=== PATIENT | male | born 1980 | race Caucasian/White ===

== ENCOUNTER 2017-06-17 08:46 | Emergency (ER) | payer BC ==
[2017-06-17 09:27] VITALS: BP 112/69
[2017-06-17] MEDS ORDERED: predniSONE TAB* 20 MG PO ONE (09:57)
--- NOTE | 2017-06-17 13:20 | UC ---
Throat Pain/Nasal Eliazar HPI - HPI Summary HPI Summary: 36 yo male with sore throat /cough and congestion x days with strep he has asthma and is concerned he is starting to feel bronchospastic he developed itchy hands when he took amox - History of Current Complaint Chief Complaint: UCRespiratory Stated Complaint: COUGH,CHEST CONGESTION Time Seen by Provider: 06/17/17 09:51 Hx Obtained From: Patient Onset/Duration: Gradual Onset Severity: Moderate Pain Intensity: 2 Pain Scale Used: 0-10 Numeric Cough: Productive Associated Signs & Symptoms: Positive: Sinus Discomfort, Nasal Discharge. Negative: Fever, Vomiting - Epiglottits Risk Factors Epiglottis Risk Factors: Negative - Allergies/Home Medications Allergies/Adverse Reactions: Allergies Allergy/AdvReac Type Severity Reaction Status Date / Time Latex Allergy Rash Verified 06/17/17 09:27 Penicillins Allergy Swelling Verified 06/17/17 09:27 Soy Allergy Allergy HIVES, Verified 06/17/17 09:27 ITCHY THROAT Home Medications: Home Medications Albuterol HFA INHALER* [Ventolin HFA Inhaler*] 3 puff INH Q12H PRN 06/17/17 [ History Confirmed 06/17/17] PMH/Surg Hx/FS Hx/Imm Hx Previously Healthy: Yes Respiratory History: Asthma, Bronchitis - Surgical History Surgical History: Yes Surgery Procedure, Year, and Place: left achilles tendon repair 2014 - Family History Known Family History: Positive: Respiratory Disease - asthma - Social History Alcohol Use: Occasionally Alcohol Amount: 1-2 PER MONTH Substance Use Type: None Smoking Status (MU): Never Smoked Tobacco Have You Smoked in the Last Year: No Review of Systems Constitutional: Negative Skin: Negative Eyes: Negative ENT: Sore Throat, Nasal Discharge, Sinus Congestion, Sinus Pain/Tenderness Respiratory: Cough Cardiovascular: Negative Gastrointestinal: Negative Genitourinary: Negative Motor: Negative Neurovascular: Negative Musculoskeletal: Negative Neurological: Negative Psychological: Negative All Other Systems Reviewed And Are Negative: Yes Physical Exam Triage Information Reviewed: Yes Appearance: Well-Appearing, No Pain Distress, Well-Nourished Vital Signs: Initial Vital Signs Temp 97.6 F 06/17/17 09:20 Pulse 85 06/17/17 09:20 Resp 18 06/17/17 09:20 BP 112/69 06/17/17 09:20 Pulse Ox 100 06/17/17 09:20 Vital Signs Reviewed: Yes Eyes: Positive: Conjunctiva Clear ENT: Positive: Hearing grossly normal, Pharyngeal erythema, Nasal congestion, Nasal drainage, TMs normal, Other: - bilat sinus tenderness. Negative: Tonsillar swelling, Tonsillar exudate, Trismus, Muffled/hoarse voice Neck: Positive: Supple, Nontender, No Lymphadenopathy Respiratory: Positive: Lungs clear, Normal breath sounds, No respiratory distress, No accessory muscle use Cardiovascular: Positive: RRR, No Murmur Abdomen Description: Positive: Nontender, No Organomegaly Musculoskeletal: Positive: ROM Intact, No Edema Neurological: Positive: Alert Psychological Exam: Normal Skin Exam: Normal Throat Pain/Nasal Course/Dx - Differential Dx/Diagnosis Provider Diagnoses: pharyngitis. sinusitis Discharge - Discharge Plan Condition: Stable Disposition: HOME Prescriptions: Cefuroxime Axetil [Ceftin 250 MG] 250 mg PO BID #20 tab Prednisone [Deltasone] 40 mg PO DAILY #10 tab Patient Education Materials: Pharyngitis (ED), Sinusitis (ED) Referrals: [facility] [Primary Care Provider] - 4 Days (if not better) Additional Instructions: recheck for new or worsening symptoms
== END 2017-06-17 10:12 | disposition home or self-care (01) ==
LOC: UCCORT 08:46
DX: J02.9 Acute pharyngitis, unspecified (principal); J32.9 Chronic sinusitis, unspecified; J45.909 Unspecified asthma, uncomplicated; Z88.0 Allergy status to penicillin; Z91.040 Latex allergy status
CPT/HCPCS: 99212; G0463

== ENCOUNTER 2017-10-23 10:32 | Emergency (ER) | payer BC ==
[2017-10-23 11:04] VITALS: BP 144/86
--- NOTE | 2017-10-23 12:28 | UC ---
[facility] HPI - HPI Summary HPI Summary: left lower "eye tooth" pain---got a new cap and has had pain every since-had be worse with swelling for the past 2 days, also needs albuterol refilled - History of Current Complaint Chief Complaint: UCDentalProblem Stated Complaint: ORAL COMPLAINT Time Seen by Provider: 10/23/17 12:09 Hx Obtained From: Patient Onset/Duration: Gradual Onset, Worse Since - past 2 days Severity: Severe Pain Intensity: 10 Pain Scale Used: 0-10 Numeric Aggravating Factor(s): Nothing Alleviating Factor(s): Nothing Related History: Previous Dental Care on Same Tooth, Swelling - Allergies/Home Medications Allergies/Adverse Reactions: Allergies Allergy/AdvReac Type Severity Reaction Status Date / Time Latex Allergy Rash Verified 10/23/17 11:04 Penicillins Allergy Swelling Verified 10/23/17 11:04 Soy Allergy Allergy HIVES, Verified 10/23/17 11:04 ITCHY THROAT PMH/Surg Hx/FS Hx/Imm Hx Previously Healthy: No Respiratory History: Asthma Psychological History: Anxiety - Surgical History Surgical History: Yes Surgery Procedure, Year, and Place: left achilles tendon repair 2014 - Family History Known Family History: Positive: Respiratory Disease - asthma - Social History Occupation: Employed Full-time Lives: With Family Alcohol Use: None Alcohol Amount: 1-2 PER MONTH Substance Use Type: None Smoking Status (MU): Never Smoked Tobacco Have You Smoked in the Last Year: No Review of Systems Constitutional: Negative Skin: Negative Eyes: Negative ENT: Dental Pain Respiratory: Negative Cardiovascular: Negative Gastrointestinal: Negative Genitourinary: Negative Motor: Negative Neurovascular: Negative Musculoskeletal: Negative Neurological: Negative Psychological: Negative Is Patient Immunocompromised?: No All Other Systems Reviewed And Are Negative: Yes Physical Exam Triage Information Reviewed: Yes Appearance: Well-Appearing, No Pain Distress, Well-Nourished Vital Signs: Initial Vital Signs Temp 98 F 10/23/17 11:00 Pulse 76 10/23/17 11:00 Resp 16 10/23/17 11:00 BP 144/86 10/23/17 11:00 Pulse Ox 100 10/23/17 11:00 Vital Signs Reviewed: Yes Eye Exam: Normal Eyes: Positive: Conjunctiva Clear ENT Exam: Normal ENT: Positive: Normal ENT inspection, Hearing grossly normal, Pharynx normal, Dental tenderness, Uvula midline. Negative: Nasal congestion, Nasal drainage, Tonsillar swelling, Tonsillar exudate, Trismus, Muffled voice, Hoarse voice, Sinus tenderness Dental Exam: Normal Dental: Positive: Percussion Tenderness @ - Left lower "eye tooth" Neck exam: Normal Neck: Positive: Supple, Nontender Respiratory Exam: Normal Respiratory: Positive: Chest non-tender, No respiratory distress, No accessory muscle use Cardiovascular Exam: Normal Cardiovascular: Positive: RRR, Pulses Normal, Brisk Capillary Refill Musculoskeletal Exam: Normal Musculoskeletal: Positive: Strength Intact, ROM Intact Neurological Exam: Normal Neurological: Positive: Alert, Muscle Tone Normal Psychological Exam: Normal Skin Exam: Normal Dental Complaint Course/Dx - Course Course Of Treatment: Antibiodic and pain med-refill MDI, follow BP with pcp---(I -stop checked and no schedueled rx reported) - Differential Dx/Diagnosis Provider Diagnoses: Dental abscess, mild intermittent asthma, elevated blood pressure with dx of hypertension Discharge - Discharge Plan Condition: Stable Disposition: HOME Prescriptions: Albuterol HFA INHALER* [Ventolin HFA Inhaler*] 2 puff INH Q6H PRN #1 mdi PRN Reason: cough Clindamycin Cap(NF) [Clindamycin Cap 300 mg Cap(NF)] 300 mg PO Q6H #40 cap Hydrocodone-Acetaminophen [Hydrocodone/Acetaminophen 5-325 mg] 1 tab PO QID PRN #16 tab MDD 4 PRN Reason: Pain Patient Education Materials: Dental Abscess (ED), Hypertension (ED) Referrals: [facility] [Primary Care Provider] - 11/01/17 Additional Instructions: Follow with Dentist on Tuesday as planned
== END 2017-10-23 12:26 | disposition home or self-care (01) ==
LOC: UCCORT 10:32
DX: K04.7 Periapical abscess without sinus (principal); J45.909 Unspecified asthma, uncomplicated; I10 Essential (primary) hypertension
CPT/HCPCS: 99212; G0463

== ENCOUNTER 2018-01-04 08:06 | Emergency (ER) | payer BC ==
[2018-01-04 08:41] VITALS: BP 126/78
--- NOTE | 2018-01-04 09:05 | UC ---
Ear Complaint HPI - HPI Summary HPI Summary: Right ear pain starting yesterday. He has had URi and congestion for about a week. Prior ear infections and tubes as child. - History of Current Complaint Chief Complaint: UCEar Stated Complaint: RT EAR COMPLAINT Time Seen by Provider: 01/04/18 08:45 Hx Obtained From: Patient Onset/Duration: Gradual Onset, Lasting Hours Severity Initially: Moderate Severity Currently: Moderate Pain Intensity: 5 Aggravating Factors: Nothing Alleviating Factors: Heat Associated Signs/Symptoms: Positive: Hearing Loss, URI Symptoms. Negative: Discharge, Trauma to Ear - Allergies/Home Medications Allergies/Adverse Reactions: Allergies Allergy/AdvReac Type Severity Reaction Status Date / Time latex Allergy Rash Verified 01/04/18 08:14 Penicillins Allergy Swelling Verified 01/04/18 08:14 soy Allergy Hives, Verified 01/04/18 08:14 Itchy throat environmental Allergy Runny Nose Uncoded 01/04/18 08:34 Home Medications: Home Medications Fluticasone-Salmeterol 100-50* [Advair Diskus 100-50*] 1 puff INH BID 01/04/18 [ History Confirmed 01/04/18] PMH/Surg Hx/FS Hx/Imm Hx Previously Healthy: No - allergies and asthma. - Surgical History Surgical History: Yes Surgery Procedure, Year, and Place: left achilles tendon repair 2014 - Family History Known Family History: Positive: Respiratory Disease - asthma - Social History Occupation: Employed Full-time Lives: With Family Alcohol Use: Occasionally Alcohol Amount: 1-2 PER MONTH Substance Use Type: None Smoking Status (MU): Never Smoked Tobacco Have You Smoked in the Last Year: No Review of Systems ENT: Ear Ache, Sinus Congestion All Other Systems Reviewed And Are Negative: Yes Physical Exam Triage Information Reviewed: Yes Appearance: Well-Appearing, No Pain Distress, Well-Nourished Vital Signs: Initial Vital Signs Temp 98 F 01/04/18 08:36 Pulse 95 01/04/18 08:36 Resp 16 01/04/18 08:36 BP 126/78 01/04/18 08:36 Pulse Ox 98 01/04/18 08:36 Vital Signs Reviewed: Yes Eyes: Positive: Conjunctiva Clear ENT: Positive: Nasal congestion, TM bulging, TM dull, TM red - right tm., Uvula midline. Negative: Tonsillar swelling, Tonsillar exudate, Trismus, Muffled voice, Sinus tenderness Neck: Positive: Supple, Nontender, No Lymphadenopathy Respiratory: Positive: Lungs clear, Normal breath sounds, No respiratory distress, No accessory muscle use. Negative: Respiratory distress, Decreased breath sounds, Accessory muscle use, Crackles, Rhonchi, Stridor, Wheezing Cardiovascular: Positive: No Murmur, Pulses Normal Abdomen Description: Positive: No Organomegaly, Soft. Negative: Distended, Guarding Bowel Sounds: Positive: Present Musculoskeletal: Positive: ROM Intact, No Edema Neurological: Positive: Alert, Muscle Tone Normal. Negative: Fatigued Psychological: Positive: Age Appropriate Behavior Skin: Negative: rashes Ear Complaint Course/Dx - Differential Dx/Diagnosis Provider Diagnoses: right om. Discharge - Discharge Plan Condition: Good Disposition: HOME Prescriptions: DOXYcycline CAP(*) [DOXYcycline 100MG CAP(*)] 100 mg PO BID #20 cap Patient Education Materials: Ear Infection (ED) Referrals: [facility] [Primary Care Provider] - Additional Instructions: Get OTC decongestants as well.
== END 2018-01-04 09:01 | disposition home or self-care (01) ==
LOC: UCCORT 08:06
DX: H66.91 Otitis media, unspecified, right ear (principal); Z91.040 Latex allergy status; Z88.0 Allergy status to penicillin; Z91.018 Allergy to other foods; Z91.048 Other nonmedicinal substance allergy status; J45.909 Unspecified asthma, uncomplicated
CPT/HCPCS: 99212; G0463

== ENCOUNTER 2019-11-28 08:43 | Emergency (ER) | payer BC, OTHER ==
[2019-11-28 09:05] VITALS: BP 143/97
--- NOTE | 2019-11-28 10:06 | UC ---
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 He is concerned about his risk of pneumonia, which has been a problem in the past. Lost his albuterol rx. Finished prednisone several days ago. - History of Current Complaint Chief Complaint: UCRespiratory Stated Complaint: CHEST CONGESTION,COUGH Time Seen by Provider: 11/28/19 10:00 Hx Obtained From: Patient Onset/Duration: Gradual Onset, Lasting Days, Worse Since - past 2 days. Timing: Intermittent Episodes Severity Initially: Moderate Severity Currently: Moderate Pain Intensity: 0 Character: Cough: Nonproductive Aggravating Factors: Exertion, Deep Breaths, Recumbent Position Alleviating Factors: Bronchodilator Associated Signs And Symptoms: Positive: Dyspnea, Wheezing, Nasal Congestion, Hoarseness - Risk Factors Pulmonary Embolism Risk Factors: Negative Cardiac Risk Factors: Negative - no hx of hypertension Pseudomonas Risk Factors: Negative Tuberculosis Risk Factors: Negative - Allergies/Home Medications Allergies/Adverse Reactions: Allergies Allergy/AdvReac Type Severity Reaction Status Date / Time Penicillins Allergy Swelling Verified 11/28/19 09:05 soy Allergy Hives, Verified 11/28/19 09:05 Itchy throat environmental Allergy Runny Nose Uncoded 11/28/19 09:05 Home Medications: Home Medications Ibuprofen TAB* [Motrin TAB* 800 MG] 600 mg PO Q8H PRN 11/28/19 [History Confirmed 11/28/19] PMH/Surg Hx/FS Hx/Imm Hx Previously Healthy: Yes Respiratory History: Asthma - severe. Daily use of steroid inhaler - Surgical History Surgical History: Yes Surgery Procedure, Year, and Place: left achilles tendon repair 2014 - Family History Known Family History: Positive: Respiratory Disease - asthma - Social History Occupation: Employed Full-time Alcohol Use: Occasionally Alcohol Amount: 1-2 PER MONTH Substance Use Type: None Smoking Status (MU): Never Smoked Tobacco Have You Smoked in the Last Year: No Review of Systems All Other Systems Reviewed And Are Negative: Yes Constitutional: Positive: Fatigue Skin: Positive: Negative Eyes: Positive: Negative ENT: Negative: Sore Throat, Ear Ache Respiratory: Positive: Shortness Of Breath, Cough Cardiovascular: Negative: Palpitations, Chest Pain Gastrointestinal: Positive: Negative Genitourinary: Positive: Negative Motor: Positive: Negative Neurovascular: Positive: Negative Musculoskeletal: Positive: Negative Neurological: Positive: Negative Is Patient Immunocompromised?: No Physical Exam Triage Information Reviewed: Yes Appearance: Well-Appearing Vital Signs: Initial Vital Signs Temp 97.3 F 11/28/19 09:03 Pulse 108 11/28/19 09:03 Resp 20 11/28/19 09:03 BP 143/97 11/28/19 09:03 Pulse Ox 98 11/28/19 09:03 Vital Signs Reviewed: Yes Eye Exam: Normal ENT: Positive: Pharynx normal Respiratory: Positive: No respiratory distress, No accessory muscle use, Decreased breath sounds, Wheezing - late expiratory Cardiovascular: Positive: RRR, No Murmur, Tachycardia Musculoskeletal Exam: Normal Neurological Exam: Normal Psychological Exam: Normal Skin Exam: Other - extensive tattooing arms and neck Respiratory Course/Dx - Course Course Of Treatment: zpack for complication of lower respiatory infection post flu, givne his past history of lower respiratory infections and increasing productive cough - Differential Dx/Diagnosis Differential Diagnosis/HQI/PQRI: Lower Resp Infection Provider Diagnosis: Bronchitis Discharge ED - Sign-Out/Discharge Documenting (check all that apply): Patient Departure All imaging exams completed and their final reports reviewed: No Studies - Discharge Plan Condition: Stable Disposition: HOME Prescriptions: Albuterol HFA INHALER* [Ventolin HFA Inhaler*] 2 puff INH Q6H PRN #1 mdi PRN Reason: Wheezing Azithromycin TAB* [Zithromax TAB (Z-JEAN CARLOS) 250 mg #6 tabs] 2 tab PO .TODAY, THEN 1 DAILY #1 jean carlos Patient Education Materials: Acute Bronchitis (ED) Referrals: Jovanni Garibay PA [Primary Care Provider] - Additional Instructions: Begin use of zpack to treat bronchitis, possible early pneumonia. Complete the course of tamiflu, and take the full course of azithromycin. Use albuterol as needed to relieve wheeze. Follow up if you have increasing shortness of breath or chest pain. - Billing Disposition and Condition Condition: STABLE Disposition: Home
== END 2019-11-28 10:14 | disposition home or self-care (01) ==
LOC: UCCORT 08:43
DX: J45.909 Unspecified asthma, uncomplicated (principal); R53.83 Other fatigue; Z88.0 Allergy status to penicillin; Z91.018 Allergy to other foods; Z91.09 Other allergy status, other than to drugs and biological substances; Z79.51 Long term (current) use of inhaled steroids
CPT/HCPCS: 99212; G0463